=== PATIENT | male | born 1965 | race Caucasian/White ===

== ENCOUNTER → 2023-04-16 07:30 | Outpatient (REF) | payer MEDICARE, BC, SELFPAY | LOC: RAD 07:30 | PROVIDERS: ATTENDING PHYSICIAN Family Medicine | DX: R05.3 Chronic cough (principal) | CPT/HCPCS: 71046 ==

== ENCOUNTER → 2023-04-25 08:27 | Outpatient (REF) | payer MEDICARE, SELFPAY | LOC: RAD 08:27 | PROVIDERS: ATTENDING PHYSICIAN Family Medicine | DX: R13.10 Dysphagia, unspecified (principal) | CPT/HCPCS: 74230; 92611 ==

== ENCOUNTER → 2023-12-09 17:18 | Outpatient (REF) | payer OTHER, SELFPAY | LOC: RCS 17:18 | PROVIDERS: ATTENDING PHYSICIAN Internal Medicine Hematology & Oncology; FAMILY PHYSICIAN Family Medicine | DX: I26.99 Other pulmonary embolism without acute cor pulmonale (principal); C90.02 Multiple myeloma in relapse; R11.2 Nausea with vomiting, unspecified; C90.00 Multiple myeloma not having achieved remission | CPT/HCPCS: 93306 ==

== ENCOUNTER → 2024-06-07 07:51 | Outpatient (REF) | payer OTHER, SELFPAY | LOC: RAD 07:51 | PROVIDERS: ATTENDING PHYSICIAN Family Medicine | DX: R42 Dizziness and giddiness (principal); M54.2 Cervicalgia | CPT/HCPCS: 70496; 70498; Q9967 ==

== ENCOUNTER → 2024-07-06 10:53 | Outpatient (REF) | payer OTHER, SELFPAY | LOC: PAVMRI 10:53 | PROVIDERS: ATTENDING PHYSICIAN Internal Medicine Hematology & Oncology; FAMILY PHYSICIAN Family Medicine | DX: I26.99 Other pulmonary embolism without acute cor pulmonale (principal); C90.00 Multiple myeloma not having achieved remission; R11.2 Nausea with vomiting, unspecified; C90.02 Multiple myeloma in relapse | CPT/HCPCS: 72157; A9575 ==

== ENCOUNTER → 2024-07-07 07:15 | Outpatient (REF) | payer OTHER, SELFPAY | LOC: PAVMRI 07:15 | PROVIDERS: ATTENDING PHYSICIAN Internal Medicine Hematology & Oncology; FAMILY PHYSICIAN Family Medicine | DX: I26.99 Other pulmonary embolism without acute cor pulmonale (principal); C90.00 Multiple myeloma not having achieved remission; R11.2 Nausea with vomiting, unspecified; C90.02 Multiple myeloma in relapse | CPT/HCPCS: 72156; A9575 ==

== ENCOUNTER → 2024-07-22 10:44 | Outpatient (REF) | payer OTHER, SELFPAY | LOC: RAD 10:44 | PROVIDERS: ATTENDING PHYSICIAN Physician Assistant Medical | DX: G95.20 Unspecified cord compression (principal); M54.2 Cervicalgia | CPT/HCPCS: 72052 ==

== ENCOUNTER 2024-10-04 09:47 | Outpatient (RCR) | payer OTHER, SELFPAY | END 2024-10-04 23:59 | disposition home or self-care (01) | LOC: RPT 09:47 | PROVIDERS: ATTENDING PHYSICIAN Physician Assistant Medical; FAMILY PHYSICIAN Family Medicine | DX: M48.02 Spinal stenosis, cervical region (principal); Z73.6 Limitation of activities due to disability; R20.2 Paresthesia of skin | CPT/HCPCS: 97110; 97162 ==

== ENCOUNTER → 2024-10-08 08:27 | Outpatient (REF) | payer OTHER, SELFPAY | LOC: RCS 08:27 | PROVIDERS: ATTENDING PHYSICIAN Internal Medicine Hematology & Oncology; FAMILY PHYSICIAN Family Medicine | DX: I26.99 Other pulmonary embolism without acute cor pulmonale (principal); C90.00 Multiple myeloma not having achieved remission; R11.2 Nausea with vomiting, unspecified; C90.02 Multiple myeloma in relapse; R80.1 Persistent proteinuria, unspecified | CPT/HCPCS: 93306; 93356 ==

== ENCOUNTER → 2024-10-14 11:40 | Outpatient (REF) | payer OTHER, SELFPAY | LOC: PET 11:40 | PROVIDERS: ATTENDING PHYSICIAN Internal Medicine Hematology & Oncology | DX: C90.00 Multiple myeloma not having achieved remission (principal) | CPT/HCPCS: 78816; A9552 ==

== ENCOUNTER → 2025-01-03 08:37 | Outpatient (REF) | payer OTHER, SELFPAY | LOC: MRI 08:37 | PROVIDERS: ATTENDING PHYSICIAN Internal Medicine Hematology & Oncology; FAMILY PHYSICIAN Family Medicine; OTHER PHYSICIAN Internal Medicine Cardiovascular Disease; REFERRING PHYSICIAN Internal Medicine | DX: C90.00 Multiple myeloma not having achieved remission (principal); I26.99 Other pulmonary embolism without acute cor pulmonale; R11.2 Nausea with vomiting, unspecified; C90.02 Multiple myeloma in relapse; R80.1 Persistent proteinuria, unspecified; E85.81 Light chain (AL) amyloidosis | CPT/HCPCS: 75561; 75565; A9585 ==